=== PATIENT | male | born 1955 | race Caucasian/White ===

== ENCOUNTER 2017-12-21 09:54 | Day surgery (SDC) | payer OTHER ==
[2017-12-21] MEDS ORDERED: LIDOCAINE 2% MPF 5 ML VIAL ONE (10:26)
[2017-12-21] MEDS ORDERED: PHENYLEPHRINE 10% OPTH 5ML ONE (10:26)
[2017-12-21] MEDS ORDERED: NA CHLORIDE 0.9% 500 ML ONE (10:26)
[2017-12-21] MEDS ORDERED: CYCLOPENTOLATE 1% OPTH 2 ML ONE (10:26)
[2017-12-21] MEDS ORDERED: BUPIVACAINE 0.25% PF 10 ML VIAL ONE (10:27)
[2017-12-21] MEDS ORDERED: TETRACAINE HCL 0.5% 2ML OPTH ONE (10:27)
[2017-12-21] MEDS ORDERED: PHENYLEPHRINE 10% OPTH 5ML OPTH ONE ×2 (10:38→10:45)
[2017-12-21] MEDS ORDERED: CYCLOPENTOLATE 1% OPTH 2 ML OPTH ONE ×2 (10:38→10:45)
[2017-12-21] MEDS ORDERED: EPINEPHRINE/PF 1 MG/ML AMP ONE (10:43)
[2017-12-21] MEDS ORDERED: NS 0.9% VIAL 10 ML ONE (10:43)
[2017-12-21] MEDS ORDERED: BALANCED SALT IRRIG PLAIN 500 ML BTL IRR ONE (10:44)
[2017-12-21] MEDS ORDERED: PROPOFOL 200 MG/20 ML VIAL IV ONE (11:32)
[2017-12-21] MEDS ORDERED: LIDOCAINE 1% MPF 2 ML AMPULE ONE (11:33)
[2017-12-21] MEDS: DUOVISC 1 KIT OPTH ONE ×2 (11:47→11:52)
[2017-12-21] MEDS: MOXIFLOXACIN HCL 10 DROPS/ML **OR USE OPTH ONE ×2 (11:47→12:02)
--- NOTE | 2017-12-21 12:11 | P.BOP ---
Preoperative diagnosis: Nuclear sclerotic and posterior subcapsular cataract OS Postoperative diagnosis: Same Primary procedure: Phacoemulsification with IOL OS Estimated blood loss: None Anesthesia: Local (Subtenon's infusion with anesthesia for cataract surgery) Complications: None Implants: ZCB00 +11.0 Transferred to: Other (Day surgery) Condition: Good
--- NOTE | 2017-12-21 23:34 | OP ---
Date of Procedure: 12/21/2017 Surgeon: Jovanna Marino MD Anesthesiologist: 1. Alok Car CRNA. 2. Gerard Morris Md. Preoperative Diagnosis: Nuclear sclerotic and posterior subcapsular cataract, right eye. Operation Performed: Phacoemulsification with intraocular lens implant, right eye. Anesthesia: Per cataract surgery. Complications: Description Of Procedure: In day surgery, the patient was prepped with Betadine and draped. A conjunctival incision was made in the inferior nasal quadrant with Katherin scissors. A sub-Tenon block consisting of a 1:1 mixture of 2% Xylocaine and 0.25% bupivacaine was placed through the conjunctival incision with a blunt cannula. A Honan balloon was placed over the eye and the patient was transferred to the operating room. In the operating room the patient was prepped and draped in the usual sterile fashion for ophthalmic surgery. A lid speculum was placed in the OD. Two paracentesis sites were made superiorly and inferiorly in the limbal cornea. Viscoat was placed in the anterior chamber and a crescent blade was used to make a corneal groove and tunnel, and a keratome was used to enter the anterior chamber. Provisc was placed in the anterior chamber and a 360 degree capsulotomy was performed with a cystitome. The lens was hydrodissected with BSS and rotated freely. The lens was removed with a stop and chop technique. 9.07 phaco CDE was used to remove the lens. Residual cortex was removed with the irrigation and aspiration. Provisc was placed in the capsular bag. A ZCB00 +11.0 lens was placed in the capsular bag without complications. Irrigation and aspiration was used to remove residual viscoelastic. The paracentesis sites were hydrated with BSS. The wound and paracentesis sites were inspected and found to be watertight. Vigamox 0.07 cc was placed intracamerally at the end of the procedure. The eye was irrigated with balanced salt solution. The eye was patched with a soft cotton patch and Armas metal shield. The patient was returned to day surgery in good condition. Comments: Discharge Instructions: Mr. Miranda was discharged to home in good condition and is to follow up with Dr. Marino in the morning. PAULINA/CARA Voice ID: [id number] Report ID: [id number] MTDD
== END 2017-12-21 12:35 | disposition home or self-care (01) ==
LOC: OR 09:54
PROVIDERS: ATTEND Ophthalmology Retina Specialist
PROC: 08RJ3JZ Replacement of Right Lens with Synthetic Substitute, Percutaneous Approach (ICD-10-PCS; principal; 2017-12-21 10:30)
DX: H25.11 Age-related nuclear cataract, right eye (principal); H25.041 Posterior subcapsular polar age-related cataract, right eye; H25.011 Cortical age-related cataract, right eye; I10 Essential (primary) hypertension; E78.00 Pure hypercholesterolemia, unspecified; Z88.1 Allergy status to other antibiotic agents; Z86.69 Personal history of other diseases of the nervous system and sense organs; Z87.891 Personal history of nicotine dependence
CPT/HCPCS: J0171; J2001

== ENCOUNTER 2018-05-31 11:52 | Day surgery (SDC) | payer OTHER ==
[2018-05-31] MEDS ORDERED: NS 0.9% VIAL 10 ML ONE (12:42)
[2018-05-31] MEDS ORDERED: BALANCED SALT IRRIG PLAIN 500 ML BTL IRR ONE (12:42)
[2018-05-31] MEDS ORDERED: DUOVISC 1 KIT OPTH ONE (12:42)
[2018-05-31] MEDS ORDERED: MOXIFLOXACIN HCL 10 DROPS/ML **OR USE OPTH ONE (12:43)
[2018-05-31] MEDS ORDERED: EPINEPHRINE/PF 1 MG/ML AMP ONE (13:05)
[2018-05-31] MEDS ORDERED: CYCLOPENTOLATE 1% OPTH 2 ML ONE (13:08)
[2018-05-31] MEDS ORDERED: NA CHLORIDE 0.9% 500 ML ONE (13:09)
[2018-05-31] MEDS ORDERED: PHENYLEPHRINE 10% OPTH 5ML ONE (13:09)
[2018-05-31] MEDS ORDERED: CYCLOPENTOLATE 1% OPTH 2 ML OPTH ONE ×2 (13:10→13:15)
[2018-05-31] MEDS ORDERED: PHENYLEPHRINE 10% OPTH 5ML OPTH ONE ×2 (13:10→13:15)
[2018-05-31] MEDS: TETRACAINE HCL 0.5% 2ML OPTH ONE ×2 (13:14→14:09)
[2018-05-31] MEDS: BUPIVACAINE 0.25% PF 10 ML VIAL ONE ×2 (13:15→14:10)
[2018-05-31] MEDS: LIDOCAINE 2% MPF 5 ML VIAL ONE ×2 (13:15→14:10)
[2018-05-31] MEDS ORDERED: PROPOFOL 200 MG/20 ML VIAL IV ONE (13:58)
[2018-05-31] MEDS ORDERED: LIDOCAINE 2% MPF 5 ML VIAL ONE (13:58)
--- NOTE | 2018-05-31 14:44 | P.BOP ---
Preoperative diagnosis: Nuclear sclerotic cataract OS Postoperative diagnosis: Same Primary procedure: Phacoemulsification with IOL OS Estimated blood loss: None Anesthesia: Local (Subtenon's infusion with anesthesia for cataract surgery) Complications: None Implants: ZCB00 +11.0 Transferred to: Other (Day surgery) Condition: Good
--- NOTE | 2018-06-01 00:56 | OP ---
Date of Procedure: 05/31/2018 Surgeon: Jovanna Marino MD Anesthesiologist: 1. Alok Reddy CRNA. 2. Facundo Jacobsen M.D. Preoperative Diagnosis: Nuclear sclerotic cataract, OS (left eye). Operation Performed: Phacoemulsification with intraocular lens implant, left eye. Anesthesia: Per cataract surgery. Complications: None. Description Of Procedure: In day surgery, the patient was prepped with Betadine and draped. A conju nctival incision was made in the inferior nasal quadrant with Katherin scissors. A sub-Tenon block c onsisting of a 1:1 mixture of 2% Xylocaine and 0.25% bupivacaine was placed through the conjunctival incision with a blunt cannula. A Honan balloon was placed over the eye and the patient was transferr ed to the operating room. In the operating room the patient was prepped and draped in the usual sterile fashion for ophthalmic surgery. A lid speculum was placed in the left eye. Two paracentesis sites were made superiorly and inferiorly in the limbal cornea. Viscoat was placed in the anterior chamber and a crescent blade wa s used to make a corneal groove and tunnel, and a keratome was used to enter the anterior chamber. P rovisc was placed in the anterior chamber and a 360 degree capsulotomy was performed with a cystitome . The lens was hydrodissected with BSS and rotated freely. The lens was removed with a stop and cho p technique. A 5.44 phaco CDE was used to remove the lens. Residual cortex was removed with the irr igation and aspiration. Provisc was placed in the capsular bag. A ZCB00 + 11.5 lens was placed in t he capsular bag without complications. Irrigation and aspiration was used to remove residual viscoel astic. The paracentesis sites were hydrated with BSS. The wound and paracentesis sites were inspect ed and found to be watertight. Vigamox 0.07 cc was placed intracamerally at the end of the procedure . The eye was irrigated with balanced salt solution. The eye was patched with a soft cotton patch a nd Armas metal shield. The patient was returned to day surgery in good condition. Comments: Discharge Instructions: Mr. Miranda is discharged to home in good condition and is to follow up with Kathryn Marino in the morning. PAULINA/MODL Voice ID: [id number] Report ID: [id number]
== END 2018-05-31 15:04 | disposition home or self-care (01) ==
LOC: OR 11:52
PROVIDERS: ATTEND Ophthalmology Retina Specialist
PROC: 08RK3JZ Replacement of Left Lens with Synthetic Substitute, Percutaneous Approach (ICD-10-PCS; principal; 2018-05-31 12:00)
DX: H25.12 Age-related nuclear cataract, left eye (principal); I10 Essential (primary) hypertension; E78.00 Pure hypercholesterolemia, unspecified; Z87.891 Personal history of nicotine dependence; Z88.1 Allergy status to other antibiotic agents; Z83.518 Family history of other specified eye disorder
CPT/HCPCS: J0171; J2704